=== PATIENT | male | born 1990 | race Caucasian/White ===

== ENCOUNTER 2019-02-10 20:51 | Emergency (ER) | payer OTHER ==
[~2019-02-10] VITALS: Ht 177.8 cm; Wt 122.5 kg
[2019-02-10 20:55] VITALS: BP 140/82
--- NOTE | 2019-02-10 21:10 | NUR ---
PT CAME TO ER C/O OF ABDOMINAL PAIN SINCE LAST FRIDAY. PER PT FRIDAY HE NOTICED BLOOD IN HIS STOOL AND FRIDAY HE SAW BLOOD IN VOMIT. BOWEL SOUNDS ACTIVE X 4 QUADRANTS. ABDOMEN SOFT, TENDER TO TOUCH X 4 QUADRANTS. PT STATES HE HAS A LOSS OF APPETITE. LAST BM 02/10/19. CURRENTLY NO N/V/D. MED HX: HERNIA IN 1998. SAFETY MEASURES IN PLACE. WAITING FOR ERMD TO EVALUATE PT.
[2019-02-10] MEDS ORDERED: PANTOPRAZOLE 40 MG INJ VIAL IVP ONE (21:40)
[2019-02-10] MEDS ORDERED: KETOROLAC 15 MG/ML VIAL IVP ONE (21:40)
[2019-02-10] MEDS ORDERED: ONDANSETRON 4 MG/2 ML VIAL IVP ONE (21:40)
--- NOTE | 2019-02-10 22:00 | NUR ---
LAB AT BEDSIDE
[2019-02-10 22:28] LABS: HEMATOCRIT 43.6 % (36-52); HEMOGLOBIN 14.6 g/dL (12.0-18.0); MEAN CORPUSCULAR HEMOGLOBIN 31 pg (27-31); MEAN CORPUSCULAR HGB CONC 33 g/dL (33-37); MEAN CORPUSCULAR VOLUME 91.9 fL (80-94); PLATELET COUNT (AUTO) 297 K/uL (140-450); RED BLOOD CELL COUNT(AUTO) 4.74 MIL/uL (4.20-6.10); RED CELL DISTRIBUTION WIDTH 14.5 % (11.6-13.7)
[2019-02-10 22:35] LABS: ANION GAP 14.3 (8-16); CREATININE 0.7 mg/dL (0.7-1.3); POTASSIUM 3.3 mmol/L (3.5-5.1)
[2019-02-10 22:44] LABS: ALBUMIN 3.3 g/dL (3.4-5.0); TOTAL BILIRUBIN 0.6 mg/dL (0.0-1.0)
[2019-02-10 22:45] LABS: PROTHROMBIN TIME 9.1 secs (10.8-13.4)
[2019-02-10 22:47] LABS: LYMPHOCYTES % (MANUAL) 37 % (20-46); MONOCYTES % (MANUAL) 3 % (5-12)
[2019-02-10 22:58] VITALS: BP 145/64
--- NOTE | 2019-02-10 23:01 | NUR ---
Patient discharged with v/s stable. Written and verbal after care instructions given and explained. Patient alert, oriented and verbalized understanding of instructions. Ambulatory with steady gait. All questions addressed prior to discharge. ID band removed. Patient advised to follow up with PMD. Rx of TRAMADOL, PRILOSEC, ZOFRAN WAS given. Patient educated on indication of medication including possible reaction and side effects. Opportunity to ask questions provided and answered.
== END 2019-02-10 22:58 | disposition home or self-care (01) ==
LOC: MED 20:51
DX: K22.6 Gastro-esophageal laceration-hemorrhage syndrome (principal)
CPT/HCPCS: 36415; 74176; 80053; 85025; 85610; 85730; 96374; 96375; 99284; C9113; J1885; J2405